=== PATIENT | female | born 1940 | race Caucasian/White ===

== ENCOUNTER 2020-11-30 19:04 | Inpatient (IN) | payer OTHER ==
[~2020-11-30] VITALS: Ht 167.6 cm; Wt 89.4 kg
[2020-11-30] VITALS (13 sets, daily range): BP systolic 91–133; BP diastolic 36–75
--- NOTE | ~2020-11-30 | P ---
[facility] [place] [address] PROCEDURE REPORT Name: KARINA PORTILLO Room #: 214-P ADM IN M.R.#: [id number] Admission: 11/30/20 Attend Phys: Jewel Steen MD Discharge: Date of : 42 Report #: [id number] THIS REPORT FOR: cc: FAM - No family physician/PCP FAM - No family physician/PCP aKran Turk MD ~ DOC #: [id number] Karan Turk MD PROCEDURE: BiV ICD implantation. PREOPERATIVE DIAGNOSES: 1. Ventricular fibrillation arrest. 2. Nonischemic cardiomyopathy. 3. [employer] Heart Association functional class 3 heart failure symptoms. 4. Acute on chronic left ventricular systolic heart failure. 5. Left bundle branch block. POSTOPERATIVE DIAGNOSES: 1. Ventricular fibrillation arrest. 2. Nonischemic cardiomyopathy. 3. [employer] Heart Association functional class 3 heart failure symptoms. 4. Acute on chronic left ventricular systolic heart failure. 5. Left bundle branch block. HISTORY: The patient is a 80-year-old female recently diagnosed with a nonischemic cardiomyopathy, EF of less than 35%. She had a recent cardiac catheterization showing nonocclusive CAD. She presented to an outside hospital, symptoms with heart failure symptoms and while admitted had a VF arrest and was successfully resuscitated. She was transferred here, started on IV amiodarone and she is here for biventricular ICD implantation. She had a repeat echocardiogram showing an EF of less than 35%. She has Stark Heart Association functional class 3 heart failure symptoms and a left bundle branch block. She is here for biventricular ICD implantation. ANESTHESIA: The patient underwent MAC anesthesia with no anesthesia related complications. INDICATIONS FOR PROCEDURE: The patient underwent informed consent. We discussed the details of the procedure including the risks, which include but not limited to bleeding, infection, vascular damage, cardiac perforation and pneumothorax. She understood these risks and her signed consent and was willing to proceed. DESCRIPTION OF PROCEDURE: The patient was brought to the EP laboratory in a fasting and sedated state and prepped and draped in a sterile fashion. She [facility] [address] [place] [address] PROCEDURE REPORT Name: KARINA PORTILLO Room #: 214-P [facility] IN M.R.#: [id number] Admission: 11/30/20 Attend Phys: Jewel Steen MD Discharge: Date of : 42 Report #: [id number] underwent a venogram showing patency of left axillary vein. She received IV antibiotics prior to initiation of the procedure. I injected lidocaine at the incision site. Incision was made. Pocket created over the prepectoral fascia and access was obtained 3 times of the left axillary vein. Next, sheaths were positioned using the modified Seldinger technique. Leads were positioned into the right ventricular apex and right atrial appendage, both with adequate pacing and sensing thresholds. These were sutured to the prepectoral fascia. Next, a coronary guide sheath was advanced into the coronary sinus and she had evidence of a posterolateral branch and an anterior lateral branch. The lead was placed into the anterolateral branch with adequate pacing and sensing thresholds and no phrenic nerve stimulation. The sheath was split, leads were connected to the new device. Tug test performed. Pocket irrigated and pocket was closed in 2 layers using 2-0 for the deep layer, 3-0 for the middle layer and surgical glue was placed to the outer skin layer. Patient awoke neurologically and hemodynamically intact. No complications. No significant bleeding. The implanted device and leads were manufactured by [employer]. The device was a model number [id number], serial number [id number]. The atrial lead was a 5076, 45 cm, serial number [id number]. RV lead was a 6935, 55 cm, serial number [id number]. The LV lead was a 4298, serial number [id number]. Atrial lead demonstrated P waves of 1.3 millivolts, pacing impedance 658 ohms, pacing threshold of 2.25 volts at 1 millisecond. The RV lead demonstrated R waves of 20 millivolts, pacing impedance 656 ohms, pacing threshold 0.7 volts at 0.4 milliseconds. The LV lead demonstrated a pacing impedance of 1030 ohms, pacing threshold of 1.9 volts at 1.0 milliseconds. The device was programmed to DDDR 60-130 mode. The VT zone was set at 180 beats per minute with 3 rounds of burst followed by 3 rounds of ramp followed by max output shocks. The VF zone was set at greater than 220 beats per minute with ATP while charging followed by max output shocks. CONCLUSION: 1. Successful BiV ICD implantation. 2. Satisfactory atrial, right ventricular, and left ventricular pacing and sensing thresholds.. MD VINCENZO Telles/NICKY By: [id number] 2206 Karan Turk MD /nt
[2020-11-30 21:41] LABS: ABSOLUTE NEUTROPHILS 11.3 thou/uL (1.4-8.2); BASOPHILS 0.2 % (0.0-2.0); EOSINOPHILS 0.3 % (0.0-3.0); HEMATOCRIT 41.7 % (37.0-47.0); HEMOGLOBIN 13.8 gm/dL (12.0-15.0); LYMPHOCYTES 8.1 % (24.0-44.0); MCH 30.5 pg (26.0-34.0); MCV 92.5 fL (80.0-100.0); MONOCYTES 6.1 % (1.0-8.0); PLATELET COUNT 154 thou/uL (150-400); POLYS 85.3 % (36.0-66.0); RBC 4.51 mil/uL (4.20-5.00); RDW 13.4 % (10.5-14.5); WBC 13.3 thou/uL (4.0-11.0)
[2020-11-30 21:57] LABS: ANION GAP 12 mmol/L (7-16); BUN 26 mg/dL (7-18); CALCIUM 9.2 mg/dL (8.5-10.1); CHLORIDE 105 mmol/L (98-107); CO2 24 mmol/L (21-32); CREATININE 1.1 mg/dL (0.6-1.0); GLUCOSE 145 mg/dL (74-106); MAGNESIUM 2.1 mg/dL (1.8-2.4); POTASSIUM 3.8 mmol/L (3.5-5.1); SODIUM 141 mmol/L (136-145); TROPONIN-I 0.11 ng/mL (<0.06)
[2020-11-30 23:21] LABS: URINE BILIRUBIN NEGATIVE (Negative); URINE BLOOD TRACE (Negative); URINE CLARITY CLEAR; URINE COLOR YELLOW; URINE GLUCOSE-RANDOM* NEGATIVE (Negative); URINE KETONES 2+ (Negative); URINE LEUKOCYTES NEGATIVE (Negative); URINE NITRITE NEGATIVE (Negative); URINE PROTEIN (DIPSTICK) NEGATIVE (Negative); URINE SPECIFIC GRAVITY 1.015 (1.005-1.035); URINE UROBILINOGEN 0.2 E.U./dl (0.2-1.0)
[2020-12-01] VITALS (57 sets, daily range): BP systolic 50–130; BP diastolic 30–56
[2020-12-01] MEDS ORDERED: COLACE100 MG PO (03:18)
[2020-12-01] MEDS ORDERED: LISINOPRIL2.5 MG PO (03:19)
[2020-12-01] MEDS ORDERED: SPIRONOLACTONE25 MG PO (03:19)
[2020-12-01] MEDS ORDERED: FUROSEMIDE 40 M40 MG PO (03:21)
[2020-12-01] MEDS ORDERED: ASA81BEC PO (03:21)
[2020-12-01] MEDS ORDERED: NITROSTAT0.4 M1 PO (03:21)
[2020-12-01] MEDS ORDERED: SIMVASTATIN40 MG PO (03:22)
[2020-12-01] MEDS ORDERED: LEXAPRO 10 MG T10 M1 PO (03:22)
[2020-12-01] MEDS ORDERED: NAMENDA 10 MG T10 MG PO (03:22)
[2020-12-01] MEDS ORDERED: EXELON1 EAC2 TRANSDERM (03:23)
[2020-12-01] MEDS ORDERED: FARXIGA10 MG PO (03:24)
[2020-12-01 05:19] LABS: HEMATOCRIT 40.6 % (37.0-47.0); HEMOGLOBIN 13.8 gm/dL (12.0-15.0); MCH 31.4 pg (26.0-34.0); MCV 92.5 fL (80.0-100.0); RBC 4.39 mil/uL (4.20-5.00); RDW 13.5 % (10.5-14.5)
[2020-12-01 05:44] LABS: CREATININE 1.1 mg/dL (0.6-1.0); POTASSIUM 3.9 mmol/L (3.5-5.1); TROPONIN-I 0.12 ng/mL (<0.06)
--- NOTE | 2020-12-01 07:09 | EKG ---
[address] [address] ELECTROCARDIOGRAM REPORT Name: KARINA PORTILLO Room #: 237- ADM IN M.R.#: [id number] Admission: 11/30/20 Attend Phys: Jewel Steen MD Discharge: Date of : 42 Report #: [id number] [facility] Test Date: 2020-11-30 Test Time: 21:05:33 Pat Name: KARINA PORTILLO Department: Room: 237 Gender: F [employer] Advisor: Yareli DIAZ RN : 1940 Requested By: Che Choe Order Number: [id number] MD: Augustin Velazquez Measurements Intervals [place] Rate: 69 P: 70 [place]: 185 QRS: -18 QRSD: 102 T: 208 QT: 648 QTc: 695 Interpretive Statements Sinus bradycardia Ventricular premature complex Aberrant conduction of SV complex(es) Consider right atrial enlargement Borderline left axis deviation Repol abnrm, prob ischemia, anterolateral lds Prolonged QT interval No previous ECG available for comparison Electronically Signed On 12-01-2020 7:09:34 CDT by Augustin Velazquez [email or web address] <ELECTRONICALLY SIGNED> By: Augustin Velazquez MD, FACC 12/01/2009 04 04 Augustin Velazquez MD, [facility] /EPI
--- NOTE | 2020-12-01 07:33 | NUR ---
PT END OF SHIFT REPORT GIVEN TO ONCOMING RN, IV LINE TRACED, PT HAS DAUGHTER VISITING AT THIS TIME, PT CARE TRANSFERED TO DAY SHIFT.
[2020-12-01] MEDS ORDERED: TOPROL XL25 MG PO (07:58)
--- NOTE | 2020-12-01 08:02 | NUR ---
ASSUMED CARE OF PT AT 0700, PT COMPLAINING OF CHEST PAIN. SHE SAID IT WAS IF SOMETHING WAS SITTING ON HER CHEST ON THE LEFT SIDE. HER DAUGHTER IS AT THE BEDSIDE AND ARRIVED AT 0745. YANNI GARCIA FOR CARDIOLOGY AT BEDSIDE AT 0800, SHE IS GOING TO WRITE FOR K+, ECHO AND A REFERRAL FOR DR. STACK FOR POSSIBLE PACE MAKER/DEFIBULATOR PLACEMENT.
--- NOTE | 2020-12-01 08:17 | EKG ---
[address] [place] [address] ELECTROCARDIOGRAM REPORT Name: KARINA PORTILLO Room #: 237- ADM IN M.R.#: [id number] Admission: 11/30/20 Attend Phys: Jewel Steen MD Discharge: Date of : 42 Report #: [id number] [facility] Test Date: 2020-12-01 Test Time: 07:21:36 Pat Name: KARINA PORTILLO Department: Room: 237 Gender: F Game Moderator: MINERVA : 1940 Requested By: Sumeet England Order Number: [id number] MD: Vinod Oden Measurements Intervals [place] Rate: 61 P: 67 [place]: 194 QRS: -25 QRSD: 158 T: 148 QT: 504 QTc: 508 Interpretive Statements Sinus rhythm Left bundle branch block Compared to ECG 11/30/2020 21:05:33 Left bundle-branch block now present Sinus bradycardia no longer present Ventricular premature complex(es) no longer present Left bundle branch block is now present Electronically Signed On 12-01-2020 8:17:27 CDT by Vinod Oden [email or web address] <ELECTRONICALLY SIGNED> By: Vinod Oden MD, [facility] 12/01/20 0817 0 0 Vinod Oden MD, [facility] /EPI
--- NOTE | 2020-12-01 11:00 | NUR ---
Discussed during los and am rounds. Chart review, she has recently been to [facility] few months ago and dc home on [facility] for cardiac dx. She admitted here from [facility], vfib, torsade. Plan going to pacemaker/defibrillator tomorrow. Cm visit with pt. and son at bedside. intro to cm and dcp. Pt. is A & O x 3, pleasant, and able to make her needs know. She lives at home with spouse. Independent when feeling well. He helps manage her medication, he drives, she has not driving in years. They both run errands together 50% of time. She is currently using oxygen per nasal cannula, no home O2 prior to hospital. 15 stairs down to the tv room. Has cane, she has been using recently if needed. No other DME. Has support from family and spouse if needed. PCP dr Monterroso. Will cont. following as needed for dc needs.
--- NOTE | 2020-12-01 11:47 | 2DMMODE ---
[facility] [place] [address] 2 D/M-MODE ECHOCARDIOGRAM Name: KARINA PORTILLO Room #: 237-P ADM IN M.R.#: [id number] Admission: 11/30/20 Attend Phys: Jewel Steen MD Discharge: Date of : 42 Report #: [id number] THIS REPORT FOR: cc: JEREMY - No family physician/PCP FAM - No family physician/PCP Sid Marie MD ~ APPROVED REPORT Study performed: 12/01/2020 09:40:31 EXAM: Comprehensive 2D, Doppler, and color-flow Echocardiogram Patient Location: In-Patient Room #: 237 BSA: 2.08 HR: 87 bpm BP: 102/48 mmHg Rhythm: NSR Other Information Study Quality: Adequate Indications Cardiomyopathy Cardiac arrest 2D Dimensions RVDd: 27.58 mm IVSd: 7.52 (7-11mm) LVOT Diam: 1.80 (18-24mm) LVDd: 67.68 mm PWd: 8.75 (7-11mm) LVDs: 59.73 (25-40mm) LV Single Plane 4CH: 24.81 % Volumes Left Atrial Volume (Systole) Single Plane 4CH: 40.22 mL Single Plane 2CH: 46.30 mL Biplane LA Volume: 52.00 mL LA ESV Index: 25.00 mL/m2 Aortic Valve AoV Peak Mookie.: 2.76 m/s AO Peak Gr.: 30.57 mmHg LVOT Max P.68 mmHg AO Mean Gr.: 17.27 mmHg LVOT Mean P.08 mmHg AO V2 Mean: 1.97 m/s LVOT Max V: 0.65 m/s [facility] [address] [place] [address] 2 D/M-MODE ECHOCARDIOGRAM Name: BANDARKARINA Room #: [address] [place] [address] [place] [facility].#: [id number] Admission: 11/30/20 Attend Phys: Jewel Steen, Discharge: Date of : 42 Report #: [id number] AO V2 VTI: 67.39 cm LVOT Mean V: 0.50 m/s LVOT V1 VTI: 16.54 cm AI Vmax: 3.24 m/s AI Grand: 1.65 m/s2 AI PHT: 569.70 ms Mitral Valve MV Decel. Time: 422.14 ms MV PHT: 122.42 ms Pulmonary Valve PV Peak Mookie.: 0.80 m/s PV Peak Gr.: 2.54 mmHg Pulmonary Vein P Vein S: 0.54 m/s P Vein A: 0.26 m/s P Vein D: 0.23 m/s P Vein A Dur.: 110.7 msec P Vein S/D Ratio: 2.35 Tricuspid Valve TR Peak Mookie.: 2.88 m/s RAP Estimate: 10.00 mmHg TR Peak Gr.: 33.09 mmHg RVSP: 43.00 mmHg Left Ventricle The left ventricle is normal size. There is global hypokinesis of the left ventricle. There is normal left ventricular wall thickness. Left ventricular systolic function is moderate to severely decreased. LVEF is 25%. Transmitral Doppler flow pattern suggests impaired LV relaxation. Right Ventricle The right ventricle is normal size. The right ventricular systolic function is normal. Atria The left atrium size is normal. The right atrium size is normal. Aortic Valve The aortic valve is normal in structure. Moderate aortic regurgitation. Moderate to severe aortic stenosis. Highest mean aortic valve gradient is _31___mmHg. Calculated TIMMY by the continuity equation is __.8__cm2. Mitral Valve The mitral valve is normal in structure. Mild mitral regurgitation. No evidence of mitral valve stenosis. [facility] [address] [place] [address] 2 D/M-MODE ECHOCARDIOGRAM Name: KARINA PORTILLO Room #: 237-P [facility] IN .R.#: [id number] Admission: 11/30/20 Attend Phys: Jewel Steen, Discharge: Date of : 42 Report #: [id number] Tricuspid Valve The tricuspid valve is normal in structure. Mild tricuspid regurgitation. Pulmonic Valve The pulmonary valve is normal in structure. There is no pulmonic valvular regurgitation. Great Vessels The aortic root is normal in size. IVC is normal in size and collapses >50% with inspiration. Pericardium There is no pericardial effusion. There is no pleural effusion. <Conclusion> The left ventricle is normal size. Left ventricular systolic function is moderate to severely decreased. There is global hypokinesis of the left ventricle. LVEF is 25%. The left atrium size is normal. The aortic valve is normal in structure. Thickened leaflets with decreased excursion Moderate to severe aortic stenosis. Highest mean aortic valve gradient is _31___mmHg. Calculated TIMMY by the continuity equation is __.8__cm2. Moderate aortic regurgitation. The mitral valve is normal in structure. Mild mitral regurgitation. The tricuspid valve is normal in structure. Mild tricuspid regurgitation. The pulmonary valve is normal in structure. The aortic root is normal in size. There is no pericardial effusion. <ELECTRONICALLY SIGNED> By: Sid Marie MD 12/01/20 1147 1147 1147 Sid Marie MD /INF
[2020-12-02] VITALS (12 sets, daily range): BP systolic 107–129; BP diastolic 38–57
[2020-12-02 05:13] LABS: HEMATOCRIT 38.9 % (37.0-47.0); MCH 31.4 pg (26.0-34.0); MCHC 33.4 g/dL (28.0-37.0); MCV 93.9 fL (80.0-100.0); RBC 4.14 mil/uL (4.20-5.00); RDW 13.7 % (10.5-14.5); WBC 8.7 thou/uL (4.0-11.0)
[2020-12-02 06:06] LABS: MAGNESIUM 2.2 mg/dL (1.8-2.4); POTASSIUM 4.2 mmol/L (3.5-5.1)
--- NOTE | 2020-12-02 06:40 | NUR ---
pt resting in bed, he appears comfortable at this time, pt continues to require passive ROM and he has no current ability to do any active ROM, pt repositionsed 2q hours through out night and ROM done during repositioning. tolerated well, pt resting and is in no distress
--- NOTE | 2020-12-02 14:59 | NUR ---
FAXED CLINICAL UPDATES TO [employer]. CONFIRMED WITH VARSHA/LIAISON THAT SHE RECEIVED AND WILL KEEP HER POSTED REGARDING PATIENT'S DISCHARGE PLANS. [employer] [facility] P [phone]; FAX [phone]; VARSHA Coelho [phone]
[2020-12-03 03:27] VITALS: BP 119/54
[2020-12-03 04:58] LABS: HEMOGLOBIN 12.8 gm/dL (12.0-15.0); MCH 31.4 pg (26.0-34.0); MCHC 33.6 g/dL (28.0-37.0); MCV 93.4 fL (80.0-100.0); RBC 4.07 mil/uL (4.20-5.00); RDW 13.2 % (10.5-14.5); WBC 9.1 thou/uL (4.0-11.0)
[2020-12-03 05:25] LABS: CALCIUM 8.7 mg/dL (8.5-10.1); CREATININE 0.8 mg/dL (0.6-1.0); MAGNESIUM 2.1 mg/dL (1.8-2.4); POTASSIUM 3.9 mmol/L (3.5-5.1)
[2020-12-03 08:42] VITALS: BP 109/69
[2020-12-03 12:31] VITALS: BP 106/60
--- NOTE | 2020-12-03 12:33 | NUR ---
Case discussed with the care team and family here visiting with the pt at bedside. All parties are anticipating dc home tomorrow with a resumption of hh services per [facility]. [facility] is aware and will need orders faxed and their oncall notified. [phone], fax is [phone]
--- NOTE | 2020-12-03 19:35 | NUR ---
PATIENT COMPLETED CXR FOR FOLLOW UP POST AICD PLACEMENT, OK PER PHYSICIAN TO HAVE SLING OFF. CARDIO PROMOTIONS SPECIALIST GAVE EDUCATION ON HOW TO CARE FOR AICD SITE AND ACTIVITY. SCHAFFER DC'D AT 1700 THIS SHIFT AND PATIENT VOIDED POST CATH DC. NO CHANGES IN PATIENT ASSESSMENT, SEE CHARTING.
[2020-12-03 20:57] VITALS: BP 108/46
[2020-12-04 04:18] VITALS: BP 136/52
[2020-12-04 05:04] LABS: HEMATOCRIT 37.3 % (37.0-47.0); HEMOGLOBIN 12.7 gm/dL (12.0-15.0); MCH 31.4 pg (26.0-34.0); MCV 92.4 fL (80.0-100.0); RBC 4.04 mil/uL (4.20-5.00); RDW 12.9 % (10.5-14.5); WBC 8.8 thou/uL (4.0-11.0)
[2020-12-04 05:10] LABS: CREATININE 0.9 mg/dL (0.6-1.0); POTASSIUM 3.9 mmol/L (3.5-5.1)
[2020-12-04 07:30] VITALS: BP 99/51
--- NOTE | 2020-12-04 07:38 | NUR ---
PT CONFUSED AND FORGETFUL AFTER FAMILY WENT HOME, NEEDED FREQUENT REORIENTATION, SLEPT VERY LITTLE, VSS, NO C/O PAIN, HOPING TO GO HOME SOON. REPORT GIVEN TO NEXT SHIFT TO CON'T WITH PPOC.
--- NOTE | 2020-12-04 10:05 | NUR ---
REPORT GIVEN TO [facility], WHO WILL ASSUME CARE.
[2020-12-04] MEDS ORDERED: PACERONE 200 M200 M1 PO (10:14)
[2020-12-04 11:14] VITALS: BP 106/60
--- NOTE | 2020-12-04 11:46 | NUR ---
Patient discharged with and daughter at bedside. IV and tele removed. Prescription given, taken out by wheelchair to private vehicle. No questions concerns from patient or family at time of discharge teaching.
== END 2020-12-04 11:54 | disposition home health service (06) | DRG 226 ==
LOC: ICU 19:04 → 2N 12-02 13:54
PROVIDERS: Nurse Practitioner Family; ADMIT Internal Medicine; ATTEND Internal Medicine
PROC: 5A12012 Performance of Cardiac Output, Single, Manual (ICD-10-PCS; 2020-12-01)
PROC: 02H63KZ Insertion of Defibrillator Lead into Right Atrium, Percutaneous Approach (ICD-10-PCS; principal; 2020-12-02)
PROC: B51N1ZZ Fluoroscopy of Left Upper Extremity Veins using Low Osmolar Contrast (ICD-10-PCS; principal; 2020-12-02)
PROC: 0JH609Z Insertion of Cardiac Resynchronization Defibrillator Pulse Generator into Chest Subcutaneous Tissue and Fascia, Open Approach (ICD-10-PCS; principal; 2020-12-02)
PROC: 02HK3KZ Insertion of Defibrillator Lead into Right Ventricle, Percutaneous Approach (ICD-10-PCS; principal; 2020-12-02)
PROC: 02HL3KZ Insertion of Defibrillator Lead into Left Ventricle, Percutaneous Approach (ICD-10-PCS; principal; 2020-12-02)
DX: I49.01 Ventricular fibrillation (principal); I50.43 Acute on chronic combined systolic (congestive) and diastolic (congestive) heart failure; I46.9 Cardiac arrest, cause unspecified; I42.8 Other cardiomyopathies; R77.8 Other specified abnormalities of plasma proteins; I44.7 Left bundle-branch block, unspecified; F32.9 Major depressive disorder, single episode, unspecified; F03.90 Unspecified dementia, unspecified severity, without behavioral disturbance, psychotic disturbance, mood disturbance, and anxiety; I25.10 Atherosclerotic heart disease of native coronary artery without angina pectoris; R10.9 Unspecified abdominal pain; I11.0 Hypertensive heart disease with heart failure; E78.5 Hyperlipidemia, unspecified; Z85.3 Personal history of malignant neoplasm of breast; Z88.8 Allergy status to other drugs, medicaments and biological substances; Z83.3 Family history of diabetes mellitus; Z82.49 Family history of ischemic heart disease and other diseases of the circulatory system; Z79.82 Long term (current) use of aspirin; Z79.899 Other long term (current) drug therapy

== ENCOUNTER → 2020-12-09 | Outpatient (CLI) | payer OTHER ==
[~2020-12-09] MED LIST: ASA81BEC PO; COLACE100 MG PO; EXELON1 EAC2 TRANSDERM; FARXIGA10 MG PO; FUROSEMIDE 40 M40 MG PO; LEXAPRO 10 MG T10 M1 PO; LISINOPRIL2.5 MG PO; NAMENDA 10 MG T10 MG PO; NITROSTAT0.4 M1 PO; PACERONE 200 M200 M1 PO; SIMVASTATIN40 MG PO; SPIRONOLACTONE25 MG PO; TOPROL XL25 MG PO
--- NOTE | ~2020-12-09 | P ---
[facility] [place] [address] PROCEDURE REPORT Name: KARINA PORTILLO Room #: REG CARMELLA Angella.#: [id number] Admission: 12/09/20 Attend Phys: Karan Turk MD Discharge: Date of : 42 Report #: [id number] THIS REPORT FOR: cc: FAM - No family physician/PCP FAM - No family physician/PCP Karan Turk MD ~ DOC #: [id number] Karan Turk MD PREOPERATIVE DIAGNOSES: 1. Nonischemic cardiomyopathy. 2. Left bundle branch block. 3. [place] Heart Association functional class 3 heart failure symptoms. 4. Ventricular fibrillation arrest. PROCEDURE PERFORMED: Biventricular ICD implantation. HISTORY: The patient is a 80-year-old female recently diagnosed with a nonischemic cardiomyopathy. She has a left bundle branch block and [place] Heart Association functional class 3 heart failure symptoms. She was admitted to an outside hospital and had a VF arrest and was successfully resuscitated. She was transferred here, started on IV amiodarone and she is here for biventricular ICD implantation for secondary prevention of sudden cardiac . ANESTHESIA: The patient underwent MAC anesthesia with no anesthesia related complications. PROCEDURE: The patient underwent informed consent. We discussed the details of the procedure including the risks, which include but not limited to bleeding, infection, vascular damage, cardiac perforation and pneumothorax. She and her durable power of claims attorney agreed to proceed with the procedure. DESCRIPTION OF PROCEDURE: The patient was brought to the EP laboratory in fasting and sedated state and prepped and draped in a sterile fashion. She received IV antibiotics prior to initiation of the procedure. I injected lidocaine at the incision site. Incision was made, pocket created over the prepectoral fascia. Access was obtained 3 times of left axillary vein using the extrathoracic approach. Sheaths were positioned using the modified Seldinger technique. Next, leads were positioned into the right ventricular apex and right atrial appendage, both with adequate pacing and sensing thresholds. Leads were sutured to the prepectoral fascia. Next, a coronary sinus guide sheath was placed into the right atrium and advanced into the coronary sinus. There was evidence of a nice anterolateral branch. The lead was delivered into this position with adequate pacing and sensing thresholds. The sheath was split and the lead remained in position. This lead was sutured to the prepectoral fascia as well. The device was connected to the leads. Pocket was irrigated and the [facility] [address] [place] [address] PROCEDURE REPORT Name: KARINA PORTILLO [facility] [id number] Admission: 12/09/20 Attend Phys: Karan Turk MD Discharge: Date of : 42 Report #: [id number] pocket was closed using 2-0 for the deep layer, 3-0 for the middle layer and surgical glue was placed to outer skin layer. The patient awoke neurologically and hemodynamically intact. No complications and no significant bleeding. The implanted device was [employer], model number [id number], serial number [id number]. The atrial lead was a 5076, 45 cm, serial number [id number]. The RV lead was a 6935, 55 cm, serial number [id number]. The ventricular lead was a 4298, 88 cm, serial number [id number]. Atrial lead demonstrated a P-wave of 1.3 millivolts, pacing impedance of 658 ohms and a pacing threshold of 2.2 volts at 1 millisecond. The RV lead demonstrated an R-wave of 20 millivolts, pacing impedance of 656 ohms and a pacing threshold of 0.7 volts at 0.4 milliseconds. The LV lead demonstrated a pacing impedance of 1030 ohms, pacing threshold of 1.9 volts at 1 millisecond. Device was programmed to the DDDR 60-130 mode. The VT zone was set at 330 milliseconds with 3 rounds of burst followed by 3 rounds of ramp followed by max output shocks. The VF zone was set at less than 270 milliseconds with ATP while charging followed by max output shocks. CONCLUSION: Successful BiV ICD implantation. Karan Turk MD LFC/MARCIAL By: 1123 2136 Karan Turk MD /nt
== END ==
LOC: SJCVC 15:10
PROVIDERS: ATTEND Internal Medicine Cardiovascular Disease
DX: I11.0 Hypertensive heart disease with heart failure (principal); I50.22 Chronic systolic (congestive) heart failure; I44.7 Left bundle-branch block, unspecified; I46.9 Cardiac arrest, cause unspecified; I49.01 Ventricular fibrillation; I42.8 Other cardiomyopathies; E78.5 Hyperlipidemia, unspecified; Z95.810 Presence of automatic (implantable) cardiac defibrillator; Z88.0 Allergy status to penicillin; Z79.82 Long term (current) use of aspirin; Z79.899 Other long term (current) drug therapy; Z85.3 Personal history of malignant neoplasm of breast

== ENCOUNTER → 2021-03-02 | Outpatient (CLI) | payer OTHER | LOC: SJCVCIMAG 10:29 | PROVIDERS: ATTEND Internal Medicine Cardiovascular Disease | DX: I35.2 Nonrheumatic aortic (valve) stenosis with insufficiency (principal); I35.8 Other nonrheumatic aortic valve disorders; I42.8 Other cardiomyopathies; I46.9 Cardiac arrest, cause unspecified; I49.01 Ventricular fibrillation; I35.0 Nonrheumatic aortic (valve) stenosis; I44.7 Left bundle-branch block, unspecified; I11.0 Hypertensive heart disease with heart failure; I50.22 Chronic systolic (congestive) heart failure; E78.00 Pure hypercholesterolemia, unspecified; F32.9 Major depressive disorder, single episode, unspecified; E78.5 Hyperlipidemia, unspecified; Z79.899 Other long term (current) drug therapy; Z79.82 Long term (current) use of aspirin; Z85.3 Personal history of malignant neoplasm of breast; Z95.810 Presence of automatic (implantable) cardiac defibrillator; Z88.8 Allergy status to other drugs, medicaments and biological substances ==

== ENCOUNTER → 2021-06-22 | Outpatient (CLI) | payer OTHER | LOC: SJCVC 13:13 | PROVIDERS: ATTEND Internal Medicine Cardiovascular Disease | DX: I42.8 Other cardiomyopathies (principal); I46.9 Cardiac arrest, cause unspecified; I49.01 Ventricular fibrillation; I44.7 Left bundle-branch block, unspecified; I11.0 Hypertensive heart disease with heart failure; I50.22 Chronic systolic (congestive) heart failure; F32.A Depression, unspecified; E78.5 Hyperlipidemia, unspecified; Z95.0 Presence of cardiac pacemaker; Z79.899 Other long term (current) drug therapy; Z88.8 Allergy status to other drugs, medicaments and biological substances ==